=== PATIENT | female | born 1960 | race Caucasian/White ===

== ENCOUNTER 2016-11-29 22:45 | Emergency (ER) | payer OTHER ==
[~2016-11-29] VITALS: Ht 170.2 cm; Wt 79.5 kg
[~2016-11-29 22:45] MED LIST: NOMED
[2016-11-29 22:55] VITALS: BP 157/104; PULSE 92; RESP 18; O2SAT 98
[2016-11-29] MEDS ORDERED: oxyCODONE-Acetamin 5-325 mg Tablet PO ONE (23:45)
[2016-11-29] MEDS ORDERED: Ondansetron 8 mg ODT Tablet ONE (23:47)
--- NOTE | 2016-11-30 00:27 | ED.REPORT ---
HPI-Extremity Problem Lower Date of Service Nov 30, 2016 ED Provider: Benito Byrd MD The patient is a 56 year old female with a history of hypertension and right congenital clubfoot s/p elective BKA who presents to the ED with a right leg injury onset just prior to arrival. The patient was walking with a new prosthetic when it slid off and she stepped hard onto the sidewalk with the end of her leg, resulting in immediate pain. She denies additional injury/trauma or other symptoms. Nursing Notes Stated Complaint: AMPUTEE,FELL AND HURT STUMP Chief Complaint: Extremity Trauma Nursing Notes Reviewed: Yes Allergies: Uncoded Allergies: vicryl Suture (Allergy, Severe, Wound Dehiscence, 04/14/10) PNEUMOVAX (Allergy, Unknown, 11/13/13) Miscellaneous Medications No Historical Medication (No Historical Medication) Ea General Time Seen by MD: 23:43 Chief Complaint Leg injury right Hx Obtained From: Patient Arrived By: Walk-in Onset Occurred: Just prior to arrival Symptom Duration: Since onset Caused by: Accidental Location: : Leg right Quality: Painful Severity: Current: Moderate Severity: Maximum: Moderate Pertinent Negative: Relieved by nothing Immunizations: Unknown Recent Healthcare: No recent doctor visit Past Medical History Past Medical History Right congenital clubfoot s/p elective BKA Hypertension Past Surgical History Orthopedic foot surgery on right foot for congenital clubfoot Right BKA Breast reduction surgery Hernia repair Abdominoplasty. Reports: (x2), Hysterectomy Reports: Tubal ligation Smoking History Unknown if Ever Smoker Social History Other Social History: Good social support Ambulatory Status Independent Review of Systems Constitutional: Denies: Fever Musculoskeletal: Reports: Extremity pain (Right Leg) Complete sys rev & neg: except as marked. Respiratory: Denies: Non-productive cough, Shortness of breath GI: Denies: Diarrhea, Vomiting Physical Exam Initial Vital Signs Vital Signs (First) Date Time Temp Pulse Resp B/P Pulse Ox O2 Delivery O2 Flow Rate FiO2 11/29/16 22:55 36.6 92 18 157/104 98 Room Air Initial VS: Reviewed, Vital signs abnormal Head / Eyes: Atraumatic, Normocephalic ENT: Conjunctiva normal, No scleral icterus Neck: Supple, Full range of motion Skin: Warm, Dry, No cyanosis Neurologic: Alert, Oriented, Nonfocal Psychiatric: Mood/affect normal, Behavior normal, Normal thought content Lower Extremity / Pelvis / MS: No swelling, No erythema, No deformity Patient is s/p right BKA with posterior stump tenderness General/Constitutional: Awake, Alert Interpretation & Diagnostics X-Ray Interpretation Xray Interpretation: No acute fracture Study Performed: 2 View X-Ray Ordered: Tibia fibula right Interpretation / Wet Read by: Wet read ED physician Re-Eval/Medical Decision Med Decision/Clinical Course 56-year-old female who had a BKA amputation. She was trying a new prosthesis when it slipped off and she fell forward and landed on the tip of her stump. It is very painful. X-ray examination shows no significant deformity. She is being discharged home to follow up with her regular immersion metalcleaner. Source of Hx: Old records Re-Evaluation/Progress : Time of Eval: 00:20 Patient Status: Condition improved Re-Evaluation/Progress Note: Discussed with patient x-ray results, diagnosis, and plan for discharge. Follow-up and return to the ER instructions given. Patient agrees with plan for care and all questions were addressed. Counseled Regarding: Diagnosis, Need for follow-up, When/why to return to ED Discharge & Departure Impression: Primary Impression: Contusion of leg Encounter type: initial encounter Laterality: right Qualified Code: S80.11XA - Contusion of right lower leg, initial encounter Disposition: Home Discharge Condition All VS Reviewed: Yes Condition: No Change Patient Instructions: Contusion in Adults (ED) Additional Instructions: There is no evidence of acute fracture or displacement of the hardware. This seems to be all soft tissue injury. Ice and elevation. Talk with your primary provider about this if it continues to give you problems. Tylenol and/or ibuprofen as needed for pain. Referrals: NOPCP (PCP) Scribe Attestation Portions of this note were transcribed by Lola Rosa. I, Dr. Byrd, personally performed the history, physical exam, and medical decision-making; I reviewed and confirmed the accuracy of the information in the transcribed note. Signed by: Drake Fontana, 11/30/2016, 01:35 Benito Byrd MD Nov 30, 2016 00:27 LOLA ROSA Nov 30, 2016 01:04
[2016-11-30 00:35] VITALS: BP 129/85; PULSE 79; RESP 16; O2SAT 94
--- NOTE | 2016-11-30 08:08 | DRSVH ---
PROCEDURE: X-RAY RIGHT TIBIA/FIBULA, TWO VIEWS ([id number]) INDICATIONS: FELL STRAIGHT DOWN ONTO STUMP TECHNIQUE: 2 views of the tibia and fibula were acquired. COMPARISON: None. FINDINGS: Bones: There is below knee amputation. No fractures or dislocations. No suspicious bony lesions. Soft tissues: No suspicious soft tissue calcifications or masses. IMPRESSION: No fracture or dislocation. Below knee amputation. Dictated by: Gino Rebollar M.D. on 11/30/2016 at 8:05 Approved by: Gino Rebollar M.D. on 11/30/2016 at 8:06
== END 2016-11-30 00:35 | disposition home or self-care (01) ==
LOC: SED 22:45
DX: S80.11XA Contusion of right lower leg, initial encounter (principal); X58.XXXA Exposure to other specified factors, initial encounter; Y93.01 Activity, walking, marching and hiking; Y92.480 Sidewalk as the place of occurrence of the external cause; Y99.8 Other external cause status; Q66.89 Other specified congenital deformities of feet; I10 Essential (primary) hypertension; Z89.511 Acquired absence of right leg below knee; Z97.13 Presence of artificial right leg (complete) (partial)